=== PATIENT | male | born 1970 | race African-American/Black ===

== ENCOUNTER 2023-07-19 20:14 | Emergency (ER) | payer MEDICAID ==
[~2023-07-19] VITALS: Ht 182.9 cm; Wt 106.8 kg
[2023-07-19 20:25] VITALS: TEMP 98.4
[2023-07-19] MEDS ORDERED: SODIUM CHLORIDE 0.9% 1,000 ML IV ONE (21:15)
[2023-07-19] MEDS ORDERED: ONDANSETRON HCL 4 MG/2 ML VIAL IVP ONE (21:15)
[2023-07-19 21:46] LABS: BASOPHILS % (AUTO) 0.3 % (0.0-2.0); EOSINOPHILS % (AUTO) 0.3 % (1.0-6.0); HEMATOCRIT 42.9 % (41-53); HEMOGLOBIN 14.4 g/dL (13.5-17.5); LYMPHOCYTES # (AUTO) 1.5 K/uL (1.0-4.8); LYMPHOCYTES % (AUTO) 17.9 % (22.0-44.0); MEAN CORPUSCULAR HEMOGLOBIN 31.4 pg (26.0-34.0); MEAN CORPUSCULAR HGB CONC 33.7 G/dL (31.0-37.0); MEAN CORPUSCULAR VOLUME 93 fL (80-100); MONOCYTES # (AUTO) 0.5 K/uL (0.1-1.0); MONOCYTES % (AUTO) 5.4 % (2.0-9.0); NEUTROPHILS # (AUTO) 6.5 K/uL (1.8-7.7); NEUTROPHILS % (AUTO) 76.1 % (40.0-70.0); PLATELET COUNT (AUTO) 196 K/uL (150-450); RED CELL DISTRIBUTION WIDTH 12.7 % (11.5-14.5); WHITE BLOOD COUNT (AUTO) 8.5 K/uL (4.5-11.0)
[2023-07-19 22:01] LABS: ALBUMIN 3.8 g/dL (3.4-5.0); BILIRUBIN,TOTAL 0.3 mg/dL (0.1-1.0); CALCIUM, TOTAL 8.9 mg/dL (8.8-10.5); CREATININE 1.29 mg/dL (0.60-1.30)
[2023-07-19 22:03] LABS: TROPONIN I-HIGH SENSITIVITY 17 ng/L (<76)
[2023-07-19 23:00] VITALS: BP 131/74
[2023-07-20] MEDS ORDERED: ONDA-104 PO (00:32)
[2023-07-20 02:30] VITALS: PULSE 78; RESP 18
== END 2023-07-20 02:55 | disposition home or self-care (01) ==
LOC: EMS 20:16
DX: R11.2 Nausea with vomiting, unspecified (principal); F12.90 Cannabis use, unspecified, uncomplicated
CPT/HCPCS: 99284; 96374; 96361; 80053; 83690; 84484; 85025; 93005; J2405; J7030; 36415-L1; 36415-TC

== ENCOUNTER 2024-07-09 02:05 | Emergency (ER) | payer MEDICAID ==
[~2024-07-09] VITALS: Ht 182.9 cm; Wt 93.2 kg
[~2024-07-09 02:05] MED LIST: ONDA-104 PO
[2024-07-09 02:50] VITALS: TEMP 97.7
[2024-07-09 03:12] LABS: EOSINOPHILS % (AUTO) 3.7 % (1.0-6.0); HEMATOCRIT 51.2 % (41-53); LYMPHOCYTES # (AUTO) 4.3 K/uL (1.0-4.8); LYMPHOCYTES % (AUTO) 44.6 % (22.0-44.0); MEAN CORPUSCULAR HEMOGLOBIN 32.4 pg (26.0-34.0); MEAN CORPUSCULAR HGB CONC 33.2 G/dL (31.0-37.0); MEAN CORPUSCULAR VOLUME 98 fL (80-100); MONOCYTES # (AUTO) 0.4 K/uL (0.1-1.0); NEUTROPHILS # (AUTO) 4.5 K/uL (1.8-7.7); NEUTROPHILS % (AUTO) 46.7 % (40.0-70.0); PLATELET COUNT (AUTO) 267 K/uL (150-450); RED BLOOD CELL COUNT(AUTO) 5.24 MIL/uL (4.50-5.90); RED CELL DISTRIBUTION WIDTH 13.2 % (11.5-14.5); WHITE BLOOD COUNT (AUTO) 9.7 K/uL (4.5-11.0)
[2024-07-09 03:21] LABS: ANION GAP 9 mmol/L (8-16); CALCIUM, TOTAL 8.7 mg/dL (8.8-10.5); CARBON DIOXIDE 29 mmol/L (22-29); CHLORIDE 103 mmol/L (98-107); GLOMERULAR FILTR. RATE CALC > 60 mL/min (>60); GLUCOSE,RANDOM 100 mg/dL (70-110); POTASSIUM 3.9 mmol/L (3.5-5.1); SODIUM SERUM 141 mmol/L (136-145); UREA NITROGEN, BLOOD 6 mg/dL (7-18)
[2024-07-09 03:29] LABS: TROPONIN I-HIGH SENSITIVITY 15 ng/L (<76)
[2024-07-09 03:34] LABS: B-TYPE NATRIURETIC PEPTIDE < 5 pg/mL (0-100)
[2024-07-09 03:46] LABS: ALANINE AMINOTRANSFERASE 41 U/L (12-78); ALBUMIN 3.4 g/dL (3.4-5.0); ALKALINE PHOSPHATASE 86 U/L (46-116); ASPARTATE AMINOTRANSFERASE 37 U/L (15-37); BILIRUBIN,TOTAL 0.3 mg/dL (0.1-1.0); CREATINE KINASE, TOTAL ONLY 126 U/L (39-308)
[2024-07-09] MEDS: KETOROLAC TROMETHAMINE 30 MG/ML VIAL IM ONE (04:33)
[2024-07-09 04:36] LABS: APPEARANCE,URINE CLEAR (CLEAR); BILIRUBIN,URINE NEGATIVE (NEGATIVE); COLOR,URINE LIGHT YELLOW (YELLOW); GLUCOSE, URINE (UA) NEGATIVE (NEGATIVE); KETONES,URINE NEGATIVE (NEGATIVE); LEUKOCYTE ESTERASE ,URINE NEGATIVE (NEGATIVE); NITRATE,URINE NEGATIVE (NEGATIVE); OCCULT BLOOD,URINE NEGATIVE (NEGATIVE); PROTEIN,URINE NEGATIVE (NEGATIVE); SPECIFIC GRAVITIY, URINE 1.016 (1.003-1.030); UROBILINOGEN,URINE <=1.0 mg/dL (<=1.0)
[2024-07-09] MEDS ORDERED: BENZ-227 PO (05:37)
[2024-07-09] MEDS ORDERED: AZIT250T9 PO (05:37)
[2024-07-09 05:46] VITALS: BP 122/84; PULSE 65; RESP 18; O2SAT 97
== END 2024-07-09 05:47 | disposition home or self-care (01) ==
LOC: EMS 02:05
DX: J18.0 Bronchopneumonia, unspecified organism (principal); R07.89 Other chest pain; R05.9 Cough, unspecified
CPT/HCPCS: 99285; 71045; 80053; 81003; 82550; 83880; 84484; 85025; 36415; 82962; 93005; 96372; J1885

== ENCOUNTER 2024-07-22 06:55 | Emergency (ER) | payer MEDICAID ==
[~2024-07-22] VITALS: Ht 182.9 cm; Wt 93.2 kg
[~2024-07-22 06:55] MED LIST changes: +BENZ-227 PO
[2024-07-22 07:01] VITALS: TEMP 98.6
[2024-07-22 08:02] LABS: BASOPHILS % (AUTO) 0.7 % (0.0-2.0); EOSINOPHILS % (AUTO) 3.3 % (1.0-6.0); HEMATOCRIT 48.6 % (41-53); HEMOGLOBIN 16.2 g/dL (13.5-17.5); LYMPHOCYTES # (AUTO) 2.7 K/uL (1.0-4.8); LYMPHOCYTES % (AUTO) 36.3 % (22.0-44.0); MEAN CORPUSCULAR HEMOGLOBIN 32.4 pg (26.0-34.0); MEAN CORPUSCULAR HGB CONC 33.4 G/dL (31.0-37.0); MEAN CORPUSCULAR VOLUME 97 fL (80-100); MONOCYTES # (AUTO) 0.4 K/uL (0.1-1.0); NEUTROPHILS % (AUTO) 53.7 % (40.0-70.0); PLATELET COUNT (AUTO) 211 K/uL (150-450); WHITE BLOOD COUNT (AUTO) 7.4 K/uL (4.5-11.0)
[2024-07-22 08:10] LABS: ANION GAP 5 mmol/L (8-16); CALCIUM, TOTAL 7.9 mg/dL (8.8-10.5); CARBON DIOXIDE 29 mmol/L (22-29); CHLORIDE 104 mmol/L (98-107); CREATININE 1.28 mg/dL (0.60-1.30); GLOMERULAR FILTR. RATE CALC > 60 mL/min (>60); GLUCOSE,RANDOM 97 mg/dL (70-110); SODIUM SERUM 138 mmol/L (136-145); UREA NITROGEN, BLOOD 8 mg/dL (7-18)
[2024-07-22 08:19] LABS: TROPONIN I-HIGH SENSITIVITY 15 ng/L (<76)
[2024-07-22] MEDS ORDERED: AZIT250T9 PO (08:19)
[2024-07-22 08:43] LABS: COVID AG,FIA SOURCE NASAL SWAB
[2024-07-22 08:50] VITALS: BP 115/76; PULSE 71; RESP 18; O2SAT 98
[2024-07-22] MEDS: AZITHROMYCIN 500 MG TABLET PO ONE (08:53)
[2024-07-22 10:00] LABS: SARS-COV2 (COVID) ANTIGEN,FIA Negative (Negative)
[2024-07-22 10:03] LABS: INFLUENZA TYPE A NEGATIVE FOR TYPE A (NEGATIVE); INFLUENZA TYPE B NEGATIVE FOR TYPE B (NEGATIVE)
== END 2024-07-22 09:54 | disposition home or self-care (01) ==
LOC: EMS 06:56
DX: J18.0 Bronchopneumonia, unspecified organism (principal); F17.210 Nicotine dependence, cigarettes, uncomplicated; R06.02 Shortness of breath; Z20.822 Contact with and (suspected) exposure to COVID-19
CPT/HCPCS: 99285; 71045; 87426; 80048; 84484; 85025; 87804; 36415; 93005; J0456

== ENCOUNTER 2024-10-04 15:49 | Emergency (ER) | payer MEDICAID ==
[~2024-10-04] VITALS: Ht 180.3 cm; Wt 88.0 kg
[2024-10-04 15:57] VITALS: BP 146/85; PULSE 121; RESP 16; TEMP 98.3; O2SAT 98
== END 2024-10-04 18:05 | disposition left against medical advice (07) ==
LOC: EMS 15:49
DX: M79.671 Pain in right foot (principal); Z53.21 Procedure and treatment not carried out due to patient leaving prior to being seen by health care provider
CPT/HCPCS: 82962; 73630-TC

== ENCOUNTER 2024-10-05 06:56 | Emergency (ER) | payer MEDICAID ==
[~2024-10-05] VITALS: Ht 185.4 cm; Wt 113.6 kg
[2024-10-05 12:23] VITALS: BP 111/69; PULSE 87; RESP 18; TEMP 98.3; O2SAT 98
== END 2024-10-05 12:31 | disposition home or self-care (01) ==
LOC: EMS 06:58
DX: M79.671 Pain in right foot (principal); E11.9 Type 2 diabetes mellitus without complications; E78.00 Pure hypercholesterolemia, unspecified; F17.210 Nicotine dependence, cigarettes, uncomplicated
CPT/HCPCS: 82962; 99282; Z7502

== ENCOUNTER 2025-07-26 23:44 | Emergency (ER) | payer MEDICAID ==
[~2025-07-26] VITALS: Ht 182.9 cm; Wt 95.5 kg
[2025-07-27 00:23] VITALS: BP 119/78; PULSE 105; RESP 18; TEMP 97.9; O2SAT 100
== END 2025-07-27 02:30 | disposition left against medical advice (07) ==
LOC: EMS 23:45
DX: M79.644 Pain in right finger(s) (principal); Z53.21 Procedure and treatment not carried out due to patient leaving prior to being seen by health care provider
CPT/HCPCS: 99281; 73130-TC; Z7502

== ENCOUNTER 2025-08-12 22:09 | Emergency (ER) | payer MEDICAID ==
[~2025-08-12] VITALS: Ht 182.9 cm; Wt 90.9 kg
[2025-08-12 22:12] VITALS: TEMP 98.6
[2025-08-12 23:23] VITALS: BP 135/92; PULSE 105; RESP 18; O2SAT 99
[2025-08-12] MEDS: IBUPROFEN 400 MG TABLET PO ONE (23:38)
[2025-08-12] MEDS: ACETAMINOPHEN 500 MG TABLET PO ONE (23:38)
[2025-08-13] MEDS ORDERED: IBUP-1506 PO (01:26)
== END 2025-08-13 01:34 | disposition home or self-care (01) ==
LOC: EMS 22:09
DX: M19.012 Primary osteoarthritis, left shoulder (principal); M79.641 Pain in right hand; E11.9 Type 2 diabetes mellitus without complications; E78.00 Pure hypercholesterolemia, unspecified; F17.210 Nicotine dependence, cigarettes, uncomplicated; Z79.899 Other long term (current) drug therapy
CPT/HCPCS: 99284; 73030-TC; 73130-TC; Z7502; Z7610